=== PATIENT | male | born 1955 | race Caucasian/White ===

== ENCOUNTER 2017-06-03 09:45 | Emergency (ER) | payer MEDICAID ==
[~2017-06-03] VITALS: Ht 175.3 cm; Wt 91.6 kg
[2017-06-03 12:35] VITALS: BP 161/94
== END 2017-06-03 15:01 | disposition home or self-care (01) ==
LOC: ER 09:45
DX: S46.911A Strain of unspecified muscle, fascia and tendon at shoulder and upper arm level, right arm, initial encounter (principal); J45.909 Unspecified asthma, uncomplicated; X50.0XXA Overexertion from strenuous movement or load, initial encounter; Y93.89 Activity, other specified; Y99.0 Civilian activity done for income or pay; Y92.89 Other specified places as the place of occurrence of the external cause
CPT/HCPCS: 73030